=== PATIENT | male | born 1995 | race Caucasian/White ===

== ENCOUNTER 2017-02-09 20:49 | Emergency (ER) | payer SELFPAY ==
[~2017-02-09] VITALS: Ht 172.7 cm; Wt 100.0 kg
[2017-02-09 22:03] LABS: BASOPHILS # (AUTO) 0.02 K/uL (0.00-0.20); BASOPHILS % (AUTO) 0.2 % (0.0-2.0); EOSINOPHILS # (AUTO) 0.06 K/uL (0.00-0.70); EOSINOPHILS % (AUTO) 0.79 % (1.0-6.0); HEMATOCRIT 44.1 % (41-53); HEMOGLOBIN 15.3 g/dL (13.5-17.5); MEAN CORPUSCULAR HEMOGLOBIN 31.4 pg (26.0-34.0); MEAN CORPUSCULAR HGB CONC 34.6 G/dL (31.0-37.0); MEAN CORPUSCULAR VOLUME 91 fL (80-100); MONOCYTES # (AUTO) 0.6 K/uL (0.1-1.0); MONOCYTES % (AUTO) 7.2 % (2.0-9.0); NEUTROPHILS # (AUTO) 5.5 K/uL (1.8-7.7); NEUTROPHILS % (AUTO) 66.8 % (40.0-70.0); PLATELET COUNT (AUTO) 225 K/uL (150-450); RED BLOOD CELL COUNT(AUTO) 4.87 MIL/uL (4.50-5.90); RED CELL DISTRIBUTION WIDTH 12.6 % (11.5-14.5); WHITE BLOOD COUNT (AUTO) 8.2 K/uL (4.5-11.0)
[2017-02-09 22:22] LABS: ANION GAP 10 mmol/L (8-16); CALCIUM, TOTAL 8.9 mg/dL (8.8-10.5); CARBON DIOXIDE 27 mmol/L (22-29); CHLORIDE 102 mmol/L (98-107); CREATININE 1.03 mg/dL (0.60-1.30); GLOMERULAR FILTR. RATE CALC > 60 mL/min (>60); POTASSIUM 3.5 mmol/L (3.5-5.1); SODIUM SERUM 139 mmol/L (136-145); UREA NITROGEN, BLOOD 16 mg/dL (7-18)
[2017-02-09 22:58] VITALS: BP 132/78
== END 2017-02-09 23:00 | disposition home or self-care (01) ==
LOC: EMS 20:53
DX: F41.9 Anxiety disorder, unspecified (principal); R07.89 Other chest pain
CPT/HCPCS: 93005; 99285

== ENCOUNTER 2020-10-08 20:49 | Emergency (ER) | payer MEDICAID ==
[~2020-10-08] VITALS: Ht 170.2 cm; Wt 104.5 kg
[2020-10-08] MEDS ORDERED: LIDOCAINE 1%/EPI 1:200,000/PF 10 ML VIAL ID ONE (21:15)
[2020-10-08] MEDS ORDERED: PERTUSS(ACELL),DIPH,TET VAC/PF 0.5 ML SYRINGE IM. ONE (21:15)
[2020-10-08] MEDS ORDERED: SODIUM CHLORIDE 0.9% 250 ML IRRIG SOLUTION BOTTLE IRRIG ONE (21:15)
[2020-10-08] MEDS ORDERED: HYDROCODONE/ACETAMINOPHEN 5-325 MG TABLET PO ONE (21:15)
[2020-10-08 22:15] VITALS: BP 119/69
[2020-10-08] MEDS ORDERED: BACITRACIN 0.9 GM PACKET OINTMENT TP ONE (22:30)
== END 2020-10-08 23:02 | disposition home or self-care (01) ==
LOC: EMS 20:51
DX: S71.111A Laceration without foreign body, right thigh, initial encounter (principal); F41.9 Anxiety disorder, unspecified; F32.9 Major depressive disorder, single episode, unspecified; W45.8XXA Other foreign body or object entering through skin, initial encounter; Y93.39 Activity, other involving climbing, rappelling and jumping off; Y92.89 Other specified places as the place of occurrence of the external cause; Y99.8 Other external cause status
CPT/HCPCS: 12002; 73552; 90471; 90715; 99283; J3490